=== PATIENT | male | born 1990 | race African-American/Black ===

== ENCOUNTER 2022-05-23 21:29 | Emergency (ER) | payer SELFPAY ==
[~2022-05-23] VITALS: Ht 167.6 cm; Wt 59.0 kg
[2022-05-23 21:49] VITALS: BP 135/88
== END 2022-05-24 00:45 | disposition left against medical advice (07) ==
LOC: ER 21:29
DX: R45.851 Suicidal ideations (principal)
CPT/HCPCS: 99283